=== PATIENT | female | born 1955 | race Hispanic/Latino ===

== ENCOUNTER 2020-04-17 14:12 | Inpatient (IN) | payer MEDICARE ==
[~2020-04-17] VITALS: Ht 147.3 cm; Wt 70.6 kg
[2020-04-17 15:31] LABS: BASOPHILS % (AUTO) 0.2 % (0.0-5.0); EOSINOPHILS % (AUTO) 0.3 % (0.0-8.0); HEMATOCRIT 34.3 % (36-48); LYMPHOCYTES % (AUTO) 25.7 % (21.0-51.0); MEAN CORPUSCULAR HEMOGLOBIN 32.8 pg (27.0-33.0); MEAN CORPUSCULAR HGB CONC 32.9 g/dL (32.0-36.0); MEAN CORPUSCULAR VOLUME 99.7 fL (79-99); MONOCYTES % (AUTO) 8.9 % (3.0-13.0); NEUTROPHILS % (AUTO) 64.7 % (40.0-77.0); PLATELET COUNT (AUTO) 118 K/uL (130-400); RED BLOOD CELL COUNT(AUTO) 3.44 MIL/uL (4.00-5.50); RED CELL DISTRIBUTION WIDTH 15.3 % (11.0-15.5); WHITE BLOOD COUNT (AUTO) 6.4 K/uL (4.8-10.8)
[2020-04-17 15:40] LABS: CREATININE 0.5 mg/dL (0.5-1.5); POTASSIUM 3.3 mmol/L (3.5-5.1)
[2020-04-17 15:45] LABS: ALBUMIN 3.1 g/dL (3.5-5.0); BILIRUBIN,TOTAL 1.1 mg/dL (0.2-1.0); TOTAL PROTEIN, SERUM 6.3 g/dL (6.0-8.3)
[2020-04-17 16:15] LABS: PROTHROMBIN TIME 44.3 SEC (9.6-11.6)
[2020-04-17 16:16] LABS: INR 4.34 (0.85-1.15)
[2020-04-17] MEDS ORDERED: SODIUM CHLORIDE 0.9% 500ML 500 ML IV ONE (16:20)
[2020-04-17] MEDS ORDERED: POTASSIUM CHLORIDE 20 MEQ ERTAB PO ONE (16:20)
[2020-04-17 16:39] LABS: PARTIAL THROMBOPLASTIN TIME > 120.0 SEC (26.3-35.5)
[2020-04-17] MEDS ORDERED: MORPHINE SULFATE 2 MG/ML 1ML SYG IVP PRN (19:15)
[2020-04-17] MEDS: PHARMACY COMMUNICATION MISC SCH (19:15)
[2020-04-17] MEDS ORDERED: ONDANSETRON HCL 4 MG/2 ML VIAL IVP PRN (19:15)
--- NOTE | 2020-04-18 00:50 | NUR ---
Admission note: Admitted to floor via stretcher from ER. AOX4. Ambulatory ,but SOB with activity from Bed to restroom. Placed on O2 at 2lpm via NC with O2sat at 95-96%. Plan of care initiated. Port-a-cath , SL- patent and intact to right upper chest. Per ER staff (Ruth Ann THURSTON ) report , Cardio consult Dr. Valadez made aware and to see pt in AM. Denies feeling of discomfort. Respiratory distress not noted. Kept monitored and observed for any unusualities. Needs attended and cared for.
[2020-04-18] MEDS ORDERED: PRAV20TA4 PO (01:08)
[2020-04-18] MEDS ORDERED: CALC-888 PO (01:08)
[2020-04-18] MEDS ORDERED: CAPE500T14 PO ×2 (01:08)
[2020-04-18] MEDS: PHARMACY COMMUNICATION MISC SCH ×2 (03:15→18:32)
[2020-04-18 05:06] VITALS: BP 114/75
[2020-04-18 06:41] LABS: HEMATOCRIT 35.7 % (36-48); MEAN CORPUSCULAR HEMOGLOBIN 32.7 pg (27.0-33.0); MEAN CORPUSCULAR HGB CONC 32.5 g/dL (32.0-36.0); MEAN CORPUSCULAR VOLUME 100.6 fL (79-99); RED BLOOD CELL COUNT(AUTO) 3.55 MIL/uL (4.00-5.50); RED CELL DISTRIBUTION WIDTH 15.3 % (11.0-15.5); WHITE BLOOD COUNT (AUTO) 5.8 K/uL (4.8-10.8)
[2020-04-18 06:47] LABS: CREATININE 0.6 mg/dL (0.5-1.5); MAGNESIUM 2.1 mg/dL (1.80-2.40); POTASSIUM 4.1 mmol/L (3.5-5.1)
[2020-04-18 09:15] VITALS: BP 117/81
--- NOTE | 2020-04-18 11:18 | NUR ---
[facility] CM met with pt and sister Fabby Pitt in room discussed dc plans. Pt is semi-independent prior to admission, lives at home with mother and 2 sisters. Pt has a walker, shower chair, bedside commode provider Thu- 2.5 hrs and the rest of the week 2hrs daily. Denies any other equipments/services. Feels safe to go back home, sisters able to assist with transportation and needs as necessary. DC plan to home once stable. CM to continue to follow up. Addendum: 04/18/20 at 1120 by ALEX SPENCER LVN CM Amended: Links added.
[2020-04-18 13:10] VITALS: BP 106/73
[2020-04-18 16:34] VITALS: BP 115/72
--- NOTE | 2020-04-18 17:22 | NUR ---
SPOKE W DR. HALL REGARDING CONTACTING DR. ARSLAN DODSON TO DISCUSS PT'S INR DR. HALL SAID PT NOT ABLE TO HAVE PERICARDIAL WINDOW DUE TO PT HAVING GENERALIZED METS. PROVIDED DR. HALL WITH DR ARSLAN DODSON'S PHONE NUMBER AND HE SAID HE HAD IT ALREADY AND WOULD CALL HIM.
--- NOTE | 2020-04-18 18:44 | NUR ---
PT REPORTS WHEN SHE TAKES TYLENOL SHE CONSTANTLY FEELS THE PILL IS INSIDE HER THROAT IRRITATING HER THROAT. PT REPORTS SHE REFUSES TO TAKE. REPORTS HER DOCTOR TOLD HER NOT TO TAKE IT.
[2020-04-18] MEDS ORDERED: PHARMACY COMMUNICATION MISC SCH (18:45)
[2020-04-18 20:43] VITALS: BP 107/69
[2020-04-19] VITALS (7 sets, daily range): BP systolic 91–120; BP diastolic 53–75
[2020-04-19] MEDS: PHARMACY COMMUNICATION MISC SCH ×2 (03:15→11:15)
[2020-04-19] MEDS ORDERED: PHYTONADIONE 10 MG/1 ML AMP SQ SCH (12:00)
--- NOTE | 2020-04-19 14:55 | NUR ---
ENRIKE DELGADO SPOKE WITH PT REGARDING PERICARDIAL WINDOW, AND THE RISKS INVOLVED, WILL FOLLOW UP WITH PT/INR AT 1700 AND NOTIFY OF RESULT.
--- NOTE | 2020-04-19 15:12 | NUR ---
PT STATES SHE IS ALLERGIC TO TYLENOL AND DOES NOT TAKE IT AT HOME
[2020-04-19 17:36] LABS: INR 1.07 (0.85-1.15); PROTHROMBIN TIME 11.5 SEC (9.6-11.6)
[2020-04-20] VITALS (19 sets, daily range): BP systolic 94–132; BP diastolic 55–73
[2020-04-20 05:46] LABS: CREATININE 0.6 mg/dL (0.5-1.5)
[2020-04-20 07:01] LABS: MEAN CORPUSCULAR HGB CONC 32.9 g/dL (32.0-36.0); MEAN CORPUSCULAR VOLUME 100.6 fL (79-99); RED BLOOD CELL COUNT(AUTO) 3.48 MIL/uL (4.00-5.50); RED CELL DISTRIBUTION WIDTH 15.4 % (11.0-15.5); WHITE BLOOD COUNT (AUTO) 6.6 K/uL (4.8-10.8)
[2020-04-20 07:14] LABS: INR 1.08 (0.85-1.15); PARTIAL THROMBOPLASTIN TIME 23.7 SEC (26.3-35.5); PROTHROMBIN TIME 11.6 SEC (9.6-11.6)
[2020-04-20] MEDS ORDERED: SUCCINYLCHOLINE CHLORIDE 20 MG/ML 10 ML VIAL ONE (09:09)
[2020-04-20] MEDS ORDERED: ONDANSETRON HCL 4 MG/2 ML VIAL ONE (09:09)
[2020-04-20] MEDS ORDERED: DEXAMETHASONE SOD PHOSPHATE 10MG/ML 1ML VIAL ONE (09:09)
[2020-04-20] MEDS ORDERED: LIDOCAINE PF 2% 5ML ABBOJECT ONE (09:09)
[2020-04-20] MEDS ORDERED: ROCURONIUM 10MG/1ML SYR 10 MG/ML ML ONE (09:10)
[2020-04-20] MEDS ORDERED: GLYCOPYRROLATE 1 MG/5 ML SYRINGE ONE (09:10)
[2020-04-20] MEDS ORDERED: FENTANYL CITRATE PF 50 MCG/1 ML 2ML VIAL ONE (09:10)
[2020-04-20] MEDS ORDERED: PROPOFOL 10 MG/ML 20ML VIAL IV ONE (09:10)
[2020-04-20] MEDS ORDERED: NEOSTIGMINE 5MG/5ML SYR IV ONE (09:10)
[2020-04-20] MEDS ORDERED: MIDAZOLAM HCL 1 MG/ML 2ML VIAL ONE (09:10)
[2020-04-20] MEDS ORDERED: KETAMINE HCL 100 MG/ML 5ML VIAL IJ ONE (09:11)
[2020-04-20] MEDS ORDERED: CEFAZOLIN SODIUM 1 GM VIAL ONE (09:15)
[2020-04-20] MEDS: PHARMACY COMMUNICATION MISC SCH (11:33)
--- NOTE | 2020-04-20 11:40 | NUR ---
RECEIVED FROM PACU VIA BED. AAOX3, EYES CLOSED. RESP.'S EVEN AND UNLABORED. DENIES ANY CURRENT PAIN. DENIES ANY CURRENT SOB. MEDIASTINAL C.T. IN PLACE WITH SANGUINEOUS OUTPUT NOTED; TO 20CM SUCTION PER MD ORDERS, NO AIR LEAK NOTED. COMPLETE ASSESSMENT DONE. CALL LIGHT WITHIN REACH, VERBALIZED ABILITY TO USE. ROOM DOOR OPEN, VISIBLE FROM NURSE'S STATION. PT.'S SISTER AT BEDSIDE.
[2020-04-20 11:41] LABS: AMYLASE,BODY FLUID 25 U/L; GLUCOSE,BODY FLUID 17 mg/dL (1-40)
[2020-04-20 12:42] LABS: APPEARANCE BODY FLUID TURBID (CLEAR); BODY FLUID WBC 410 /cu. mm.; COLOR,BODY FLUID RED (LT YELLOW); SPECIMENTYPE,BODY FLUID PERICARDIAL; TOTAL VOLUME,BODY FLUID 80 mL
[2020-04-20 12:43] LABS: BODY FLUID RBC 513600 /cu. mm.
[2020-04-20 12:47] LABS: BF EOSINOPHIL 2 %; BF LYMPHOCYTE 26 %; BF MESOTHELIAL 2 %; BF MONOCYTE 3 %
[2020-04-21 03:14] VITALS: BP 93/59
[2020-04-21 05:36] LABS: HEMATOCRIT 32.3 % (36-48); MEAN CORPUSCULAR HEMOGLOBIN 32.6 pg (27.0-33.0); MEAN CORPUSCULAR HGB CONC 32.5 g/dL (32.0-36.0); MEAN CORPUSCULAR VOLUME 100.3 fL (79-99); RED BLOOD CELL COUNT(AUTO) 3.22 MIL/uL (4.00-5.50); RED CELL DISTRIBUTION WIDTH 15.5 % (11.0-15.5); WHITE BLOOD COUNT (AUTO) 7.3 K/uL (4.8-10.8)
[2020-04-21 06:06] LABS: CREATININE 0.6 mg/dL (0.5-1.5); POTASSIUM 3.6 mmol/L (3.5-5.1)
[2020-04-21 08:00] VITALS: BP 110/60
[2020-04-21] MEDS: METOPROLOL TARTRATE 25 MG TAB PO SCH ×2 (08:09→19:54)
--- NOTE | 2020-04-21 08:40 | NUR ---
DR. CALVERT IN ROOM SPEAKING WITH PT. RE:PLAN OF CARE. DR. CALVERT MAD AWARE BY THIS NURSE RE:C.T. OUTPUT; VERBALIZED UNDERSTANDING.
[2020-04-21 11:34] VITALS: BP 96/57
--- NOTE | 2020-04-21 13:03 | NUR ---
DR. Manuela TORRES IN ROOM SPEAKING WITH PT.
[2020-04-21 16:00] VITALS: BP 107/62
[2020-04-21 20:00] VITALS: BP 93/58
[2020-04-21 23:48] VITALS: BP 99/57
[2020-04-22 04:00] VITALS: BP 96/56
[2020-04-22 07:54] VITALS: BP 98/64
[2020-04-22] MEDS: METOPROLOL TARTRATE 25 MG TAB PO SCH ×2 (08:02→20:35)
--- NOTE | 2020-04-22 10:46 | NUR ---
DR. Maxine LOPEZ IN ROOM SPEAKING WITH PT. RE:PLAN OF CARE. PT.'S SISTER AT BEDSIDE.
[2020-04-22 11:26] VITALS: BP 96/54
[2020-04-22 16:00] VITALS: BP 102/65
[2020-04-22 18:48] VITALS: BP 98/62
[2020-04-22 23:27] VITALS: BP 95/65
[2020-04-23 08:00] VITALS: BP 99/61
[2020-04-23] MEDS: METOPROLOL TARTRATE 25 MG TAB PO SCH ×2 (09:00→22:11)
--- NOTE | 2020-04-23 09:00 | NUR ---
METOPROLOL HELD SECONDARY TO SYSTOLIC BP <100; MADE AWARE
[2020-04-23 12:00] VITALS: BP 97/59
[2020-04-23 16:00] VITALS: BP 115/73
[2020-04-23 19:52] VITALS: BP 110/61
[2020-04-23 23:40] VITALS: BP 105/69
[2020-04-24 03:57] VITALS: BP 102/65
[2020-04-24 08:04] LABS: HEMATOCRIT 30.9 % (36-48); RED BLOOD CELL COUNT(AUTO) 3.09 MIL/uL (4.00-5.50); RED CELL DISTRIBUTION WIDTH 15.1 % (11.0-15.5); WHITE BLOOD COUNT (AUTO) 4.6 K/uL (4.8-10.8)
[2020-04-24 08:11] LABS: CREATININE 0.4 mg/dL (0.5-1.5); MAGNESIUM 1.7 mg/dL (1.80-2.40); POTASSIUM 3.2 mmol/L (3.5-5.1)
[2020-04-24 08:30] VITALS: BP 108/72
[2020-04-24] MEDS: METOPROLOL TARTRATE 25 MG TAB PO SCH (09:00)
[2020-04-24] MEDS ORDERED: POTASSIUM CHLORIDE 10% ELIXIR 20 MEQ/15 ML UDCUP PO PRN (09:45)
[2020-04-24] MEDS ORDERED: POTASSIUM CHLORIDE 20MEQ/100ML 100 ML IV PRN (09:45)
[2020-04-24] MEDS ORDERED: MAGNESIUM 2GM PREMIX 50ML 50 ML IV SCH ×2 (09:45→10:00)
[2020-04-24] MEDS ORDERED: POTASSIUM CHLORIDE 20 MEQ ERTAB PO PRN (09:45)
[2020-04-24] MEDS ORDERED: LIDOCAINE HCL-MPF 1% 2ML VIAL IJ PRN (09:45)
[2020-04-24] MEDS ORDERED: NAPR250T4 PO (09:58)
[2020-04-24] MEDS ORDERED: COLC0.6T73 PO (09:58)
[2020-04-24] MEDS ORDERED: FAMO-136 PO (09:58)
[2020-04-24] MEDS ORDERED: POTASSIUM CHLORIDE 10% ELIXIR 20 MEQ/15 ML UDCUP PO SCH (10:00)
[2020-04-24 12:16] VITALS: BP 107/66
[2020-04-24 16:30] VITALS: BP 111/70
[2020-04-24] MEDS ORDERED: HEPARIN SODIUM/PF 100UNIT/ML 5ML SYRINGE IV SCH (18:15)
--- NOTE | 2020-04-24 19:30 | NUR ---
PT AWAKE, ALERT, AND ORIENTED. DC HOME INSTRUCTIONS GIVEN TO PT, ACKNOWLEDGED ALL INFORMATION, ALL QUESTIONS AND CONCERNS ANSWERED. AWARE MEDICATION SENT TO PHARMACY ELECTRONICALLY, RX GIVEN TO PT FOR 2 D ECHO OUTPATIENT. MADE AWARE TO DIAL 911 OR RETURN TO ER IN CASE OF EMERGENCY. PORT ACCESS DISCONTINUED PER KARSTEN THURSTON PER PROTOCOL
--- NOTE | 2020-04-25 14:57 | NUR ---
Transitional Care - Post Discharge Note Dialed number listed on file and spoke with patient's sister. As per the sister, Ms Pitt is doing well. She's eating well. The sister states she has a follow up with her PCP next week, and is taking discharge medications as ordered. Mrs Pitt's sister was made aware of her follow with Dr Jaquan Valadez. The sister sates the patient has no complaints of pain, sob, N/V/D or fevers. The sister is aware of the appointments scheduled and has assured me the patient will keep those appointments. Addendum: 04/25/20 at 1502 by ARSLAN ROSA Amended: Links added.
--- NOTE | 2020-04-25 16:18 | NUR ---
FOLLOW UP CALL T/C PLACED TO [phone], REGARDING FOLLOW UP, NO ANSWER AND LEFT MESSAGE.
== END 2020-04-24 19:50 | disposition home or self-care (01) | DRG 270 ==
LOC: EDH 14:12 → EDHIP 17:54 → 3DH 04-18 01:21 → 4CH 04-20 11:29
PROVIDERS: ADMIT Internal Medicine Infectious Disease; ATTEND Internal Medicine Infectious Disease
PROC: 0W9D0ZZ Drainage of Pericardial Cavity, Open Approach (ICD-10-PCS; principal; 2020-04-20 10:00)
DX: I31.3 Pericardial effusion (noninflammatory) (principal); I50.33 Acute on chronic diastolic (congestive) heart failure; J91.0 Malignant pleural effusion; D68.9 Coagulation defect, unspecified; C79.51 Secondary malignant neoplasm of bone; C78.00 Secondary malignant neoplasm of unspecified lung; C78.2 Secondary malignant neoplasm of pleura; I31.4 Cardiac tamponade; C50.919 Malignant neoplasm of unspecified site of unspecified female breast; D53.9 Nutritional anemia, unspecified; D69.6 Thrombocytopenia, unspecified; E11.9 Type 2 diabetes mellitus without complications; E66.01 Morbid (severe) obesity due to excess calories; E78.5 Hyperlipidemia, unspecified; E87.6 Hypokalemia; G89.29 Other chronic pain; Z17.0 Estrogen receptor positive status [ER+]; Z53.1 Procedure and treatment not carried out because of patient's decision for reasons of belief and group pressure; Z80.3 Family history of malignant neoplasm of breast; Z80.49 Family history of malignant neoplasm of other genital organs; Z85.3 Personal history of malignant neoplasm of breast; Z92.3 Personal history of irradiation; Z88.8 Allergy status to other drugs, medicaments and biological substances; Z20.828 Contact with and (suspected) exposure to other viral communicable diseases
CPT/HCPCS: 36415; 71045; 80048; 80053; 82150; 82945; 82948; 83615; 83735; 83880; 83986; 84157; 84484; 85025; 85027; 85610; 85730; 87071; 87076; 87116; 87205; 87206; 87426; 88360; 88377; 89051; 93005; 93306; 93356; 97039; 99291; A7048; G0378; J0330; J0690; J1100; J1642; J2001; J2250; J2405; J2704; J2710; J3010; J3430; J3475; J3490; J7040; J7120; U0003